=== PATIENT | male | born 1970 | race Caucasian/White ===

== ENCOUNTER 2017-02-01 09:49 | Emergency (ER) | payer OTHER ==
[~2017-02-01] VITALS: Ht 177.8 cm; Wt 81.8 kg
[~2017-02-01 09:49] MED LIST: MINOCYCLIN100 MG/CAP PO; NORCO 325 MG-51 TAB PO; PYRIDIUM 100MG100 MG PO; SENOKOT S 50 MG1 TAB PO
[2017-02-01 10:03] VITALS: BP 142/93; TEMP 98.4
[2017-02-01 11:05] VITALS: PULSE 75
== END 2017-02-01 11:06 | disposition home or self-care (01) ==
LOC: COL.ER 09:49
DX: S20.211A Contusion of right front wall of thorax, initial encounter (principal); Z98.890 Other specified postprocedural states; V49.40XA Driver injured in collision with unspecified motor vehicles in traffic accident, initial encounter
CPT/HCPCS: A9284

== ENCOUNTER 2018-08-25 20:37 | Emergency (ER) | payer SELFPAY ==
[~2018-08-25] VITALS: Ht 177.8 cm; Wt 81.8 kg
[2018-08-25 20:47] VITALS: BP 160/80; TEMP 98.9
[2018-08-25] MEDS ORDERED: CEPHALEXIN500 M1 PO (21:49)
[2018-08-25] MEDS ORDERED: BACTRIM DS 8001 TAB PO (21:49)
[2018-08-25 22:00] VITALS: PULSE 89
== END 2018-08-25 22:00 | disposition home or self-care (01) ==
LOC: COL.ER 20:37
DX: L02.211 Cutaneous abscess of abdominal wall (principal); L03.311 Cellulitis of abdominal wall

== ENCOUNTER 2020-09-11 14:38 | Emergency (ER) | payer BC ==
[~2020-09-11] VITALS: Ht 177.8 cm; Wt 70.5 kg
[~2020-09-11 14:38] MED LIST changes: +BACTRIM DS 8001 TAB PO; +CEPHALEXIN500 M1 PO
[2020-09-11 15:05] VITALS: TEMP 97.4
[2020-09-11 16:15] VITALS: BP 120/86; PULSE 80
== END 2020-09-11 16:15 | disposition home or self-care (01) ==
LOC: COL.ER 14:38
DX: S60.222A Contusion of left hand, initial encounter (principal); S60.221A Contusion of right hand, initial encounter; F17.210 Nicotine dependence, cigarettes, uncomplicated; Y04.0XXA Assault by unarmed brawl or fight, initial encounter